=== PATIENT | male | born 1990 | race Caucasian/White ===

== ENCOUNTER 2017-06-20 13:44 | Observation (INO) | payer OTHER ==
[~2017-06-20] VITALS: Ht 167.6 cm; Wt 63.5 kg
[2017-06-20 14:52] LABS: BASOPHILS ABSOLUTE AUTO 0.03 K/mm3 (0.00-0.23); BASOPHILS PERCENT AUTO 0 % (0-2); EOSINOPHILS ABSOLUTE AUTO 0.19 K/mm3 (0.00-0.68); EOSINOPHILS PERCENT AUTO 2 % (0-6); Hematocrit 41.4 % (37.0-53.0); Hemoglobin 13.9 g/dL (13.5-17.5); IMMATURE GRAN ABSOLUTE AUTO 0.02 K/mm3 (0.00-0.10); IMMATURE GRAN PERCENT AUTO 0 % (0-1); LYMPHOCYTES ABSOLUTE AUTO 1.59 K/mm3 (0.84-5.20); LYMPHOCYTES PERCENT AUTO 19 % (21-46); MONOCYTES ABSOLUTE AUTO 0.86 K/mm3 (0.16-1.47); MONOCYTES PERCENT AUTO 10 % (4-13); Mean Corpuscular HGB 31.2 pg (26.0-34.0); Mean Corpuscular HGB Conc 33.6 g/dL (31.5-36.5); Mean Corpuscular Volume 93 fL (80-100); Mean Platelet Volume 10.2 fL (9.1-12.4); NEUTROPHILS PERCENT AUTO 68 % (41-73); Platelet Count 279 K/mm3 (150-400); RDW Coefficient Variation 12.8 % (11.7-14.2); RDW Standard Deviation 43.8 fL (35.1-46.3); Red Blood Cell Count 4.46 M/mm3 (4.30-5.90); White Blood Cell Count 8.49 K/mm3 (4.00-11.30)
[2017-06-20 15:15] LABS: Ethanol (Alcohol), Blood, Med <3 mg/dL; Salicylate 2.8 mg/dL (2.8-20.0)
[2017-06-20 15:21] LABS: Alanine Aminotransfer (ALT/SGP 36 U/L (12-78); Albumin, Blood 3.7 g/dL (3.4-5.0); Alk Phos 70 U/L (50-136); Anion Gap 8 mmol/L (6-16); Aspartate Aminotrans (AST/SGOT 63 U/L (12-37); Bilirubin, Total 0.3 mg/dL (0.1-1.0); Blood Urea Nitrogen 20 mg/dL (8-24); Bun/Creatinine Ratio 30.3 (12.0-20.0); CO2, Blood 30 mmol/L (21-32); Calcium, Blood 8.9 mg/dL (8.5-10.1); Chloride, Blood 104 mmol/L (98-108); Creatinine, Blood 0.66 mg/dL (0.60-1.20); Globulin, Blood 3.7 g/dL (2.2-4.0); Glomerular Filtration Rate >60 (60-); Glucose, Blood 81 mg/dL (70-99); Potassium, Blood 3.3 mmol/L (3.5-5.5); Sodium, Blood 142 mmol/L (136-145); Thyroid Stimulating Hormone 0.628 uIU/mL (0.360-4.800); Total Protein, Blood 7.4 g/dL (6.4-8.2)
[2017-06-20 15:31] LABS: Acetaminophen, Random <2.0 ug/mL (10.0-30.0)
[2017-06-20 15:52] LABS: Source, Urine Clean Catch
[2017-06-20 16:08] LABS: Appearance, Urine Clear (Clear); Bilirubin, Urine Neg (Neg); Blood, Urine 3+ (Neg); Color, Urine Yellow (P-Yellow); Glucose Qualitative, Urine Neg (Neg); Ketones, Urine 1+ (Neg); Leukocyte Esterase, Urine 1+ (Neg); Nitrite, Urine Neg (Neg); Protein, Urine 1+ (Neg); Urobilinogen, Urine 1+ (Normal)
[2017-06-20 16:21] LABS: Calcium Oxalate Crystals Mod /hpf
[2017-06-20 16:22] LABS: Bacteria Few /hpf; Mucus Heavy (0-Heavy); Squamous Epithelial Cells Not Seen /hpf (Few)
[2017-06-20 16:24] LABS: U Amphetamine Screen Not Detected; U Barbituate Screen Not Detected; U Benzodiazapine Screen Not Detected; U Buprenorphine Screen Not Detected; U Cannabinoids Screen DETECTED; U Cocaine Screen Not Detected; U Methadone Screen Not Detected; U Methamphetamine Screen Not Detected; U Opiates Screen Not Detected; U Oxycodone Screen Not Detected; U Phencyclidine Screen Not Detected; U Propoxyphene Screen Not Detected
== END 2017-06-23 11:35 | disposition home or self-care (01) ==
LOC: ER 13:44 → EOR 13:45
PROVIDERS: Emergency Medicine
DX: F20.9 Schizophrenia, unspecified (principal); F31.9 Bipolar disorder, unspecified
CPT/HCPCS: 80053; 81001; 84443; 85025; 87086; 99285; G0378; G0480

== ENCOUNTER 2017-08-23 18:32 | Observation (INO) | payer OTHER ==
[~2017-08-23] VITALS: Ht 167.6 cm; Wt 65.8 kg
[2017-08-23] MEDS ORDERED: OLAN10 PO (18:44)
[2017-08-23 19:22] LABS: BASOPHILS ABSOLUTE AUTO 0.06 K/mm3 (0.00-0.23); BASOPHILS PERCENT AUTO 1 % (0-2); EOSINOPHILS ABSOLUTE AUTO 0.12 K/mm3 (0.00-0.68); EOSINOPHILS PERCENT AUTO 1 % (0-6); Hematocrit 43.4 % (37.0-53.0); Hemoglobin 14.5 g/dL (13.5-17.5); IMMATURE GRAN ABSOLUTE AUTO 0.04 K/mm3 (0.00-0.10); IMMATURE GRAN PERCENT AUTO 0 % (0-1); LYMPHOCYTES ABSOLUTE AUTO 2.23 K/mm3 (0.84-5.20); LYMPHOCYTES PERCENT AUTO 18 % (21-46); MONOCYTES ABSOLUTE AUTO 0.92 K/mm3 (0.16-1.47); MONOCYTES PERCENT AUTO 8 % (4-13); Mean Corpuscular HGB 31.5 pg (26.0-34.0); Mean Corpuscular HGB Conc 33.4 g/dL (31.5-36.5); Mean Corpuscular Volume 94 fL (80-100); Mean Platelet Volume 9.6 fL (9.1-12.4); NEUTROPHILS ABSOLUTE AUTO 8.93 K/mm3 (1.96-9.15); NEUTROPHILS PERCENT AUTO 73 % (41-73); Platelet Count 273 K/mm3 (150-400); RDW Coefficient Variation 12.5 % (11.7-14.2); RDW Standard Deviation 43.4 fL (35.1-46.3)
[2017-08-23 19:45] LABS: Alanine Aminotransfer (ALT/SGP 47 U/L (12-78); Albumin, Blood 3.8 g/dL (3.4-5.0); Alk Phos 72 U/L (50-136); Anion Gap 8 mmol/L (6-16); Aspartate Aminotrans (AST/SGOT 38 U/L (12-37); Bilirubin, Total 0.4 mg/dL (0.1-1.0); Blood Urea Nitrogen 13 mg/dL (8-24); Bun/Creatinine Ratio 18.4 (12.0-20.0); CO2, Blood 25 mmol/L (21-32); Calcium, Blood 8.7 mg/dL (8.5-10.1); Chloride, Blood 108 mmol/L (98-108); Creatinine, Blood 0.71 mg/dL (0.60-1.20); Ethanol (Alcohol), Blood, Med <3 mg/dL; Globulin, Blood 3.8 g/dL (2.2-4.0); Glomerular Filtration Rate >60 (60-); Glucose, Blood 84 mg/dL (70-99); Potassium, Blood 3.6 mmol/L (3.5-5.5); Salicylate <1.7 mg/dL (2.8-20.0); Sodium, Blood 141 mmol/L (136-145); Total Protein, Blood 7.6 g/dL (6.4-8.2)
[2017-08-23 19:51] LABS: Acetaminophen, Random <2.0 ug/mL (10.0-30.0)
[2017-08-23 23:27] LABS: Source, Urine Voided
[2017-08-23 23:31] LABS: Bilirubin, Urine Neg (Neg); Blood, Urine Neg (Neg); Glucose Qualitative, Urine Neg (Neg); Ketones, Urine Neg (Neg); Leukocyte Esterase, Urine Neg (Neg); Nitrite, Urine Neg (Neg); Protein, Urine Neg (Neg); Urobilinogen, Urine NORM (Normal)
[2017-08-23 23:32] LABS: Appearance, Urine Clear (Clear); Color, Urine Yellow (P-Yellow)
[2017-08-23 23:42] LABS: U Amphetamine Screen Not Detected; U Barbituate Screen Not Detected; U Benzodiazapine Screen DETECTED; U Buprenorphine Screen Not Detected; U Cannabinoids Screen DETECTED; U Cocaine Screen Not Detected; U Methadone Screen Not Detected; U Methamphetamine Screen Not Detected; U Opiates Screen Not Detected; U Oxycodone Screen Not Detected; U Phencyclidine Screen Not Detected; U Propoxyphene Screen Not Detected
[2017-08-25] MEDS ORDERED: OLAN5 PO (19:28)
== END 2017-08-24 00:30 | disposition home or self-care (01) ==
LOC: ER 18:32 → EOR 18:33
PROVIDERS: Emergency Medicine
DX: T43.592A Poisoning by other antipsychotics and neuroleptics, intentional self-harm, initial encounter (principal); F20.9 Schizophrenia, unspecified; F17.200 Nicotine dependence, unspecified, uncomplicated; Z88.0 Allergy status to penicillin; Z88.1 Allergy status to other antibiotic agents; Z91.5 Personal history of self-harm
CPT/HCPCS: 36415; 80053; 81003; 84443; 85025; 93005; 93010; 99285; G0378; G0480; Q3014

== ENCOUNTER 2017-08-25 12:00 | Observation (INO) | payer OTHER ==
[~2017-08-25] VITALS: Ht 167.6 cm; Wt 63.5 kg
[~2017-08-25 12:00] MED LIST: OLAN10 PO
[2017-08-25 13:08] LABS: BASOPHILS ABSOLUTE AUTO 0.05 K/mm3 (0.00-0.23); BASOPHILS PERCENT AUTO 1 % (0-2); EOSINOPHILS ABSOLUTE AUTO 0.21 K/mm3 (0.00-0.68); EOSINOPHILS PERCENT AUTO 2 % (0-6); Hematocrit 43.8 % (37.0-53.0); Hemoglobin 14.5 g/dL (13.5-17.5); IMMATURE GRAN ABSOLUTE AUTO 0.03 K/mm3 (0.00-0.10); IMMATURE GRAN PERCENT AUTO 0 % (0-1); LYMPHOCYTES ABSOLUTE AUTO 1.99 K/mm3 (0.84-5.20); LYMPHOCYTES PERCENT AUTO 21 % (21-46); MONOCYTES ABSOLUTE AUTO 0.62 K/mm3 (0.16-1.47); MONOCYTES PERCENT AUTO 7 % (4-13); Mean Corpuscular HGB 31.6 pg (26.0-34.0); Mean Corpuscular HGB Conc 33.1 g/dL (31.5-36.5); Mean Corpuscular Volume 95 fL (80-100); Mean Platelet Volume 9.3 fL (9.1-12.4); NEUTROPHILS ABSOLUTE AUTO 6.45 K/mm3 (1.96-9.15); NEUTROPHILS PERCENT AUTO 69 % (41-73); Platelet Count 283 K/mm3 (150-400); RDW Coefficient Variation 12.8 % (11.7-14.2); RDW Standard Deviation 44.3 fL (35.1-46.3); Red Blood Cell Count 4.59 M/mm3 (4.30-5.90); White Blood Cell Count 9.35 K/mm3 (4.00-11.30)
[2017-08-25 13:32] LABS: Alanine Aminotransfer (ALT/SGP 42 U/L (12-78); Albumin, Blood 3.6 g/dL (3.4-5.0); Albumin/Globulin Ratio 0.9 (0.8-1.8); Alk Phos 69 U/L (50-136); Anion Gap 6 mmol/L (6-16); Aspartate Aminotrans (AST/SGOT 33 U/L (12-37); Bilirubin, Total 0.3 mg/dL (0.1-1.0); Blood Urea Nitrogen 13 mg/dL (8-24); Bun/Creatinine Ratio 20.1 (12.0-20.0); CO2, Blood 30 mmol/L (21-32); Chloride, Blood 106 mmol/L (98-108); Creatinine, Blood 0.65 mg/dL (0.60-1.20); Ethanol (Alcohol), Blood, Med <3 mg/dL; Globulin, Blood 3.8 g/dL (2.2-4.0); Glomerular Filtration Rate >60 (60-); Glucose, Blood 106 mg/dL (70-99); Potassium, Blood 4.1 mmol/L (3.5-5.5); Salicylate <1.7 mg/dL (2.8-20.0); Sodium, Blood 142 mmol/L (136-145); Total Protein, Blood 7.4 g/dL (6.4-8.2)
[2017-08-25 13:34] LABS: Source, Urine Clean Catch
[2017-08-25 13:50] LABS: Acetaminophen, Random <2.0 ug/mL (10.0-30.0)
[2017-08-25 13:50] LABS: Bilirubin, Urine Neg (Neg); Blood, Urine Neg (Neg); Glucose Qualitative, Urine Neg (Neg); Ketones, Urine Neg (Neg); Leukocyte Esterase, Urine Neg (Neg); Nitrite, Urine Neg (Neg); Protein, Urine Neg (Neg); Specific Gravity, Urine 1.015 (1.003-1.022); Urobilinogen, Urine NORM (Normal)
[2017-08-25 14:07] LABS: Appearance, Urine Hazy (Clear); Color, Urine Yellow (P-Yellow)
[2017-08-25 14:08] LABS: Amorphous Mod (0-Heavy); Bacteria Rare /hpf; Red Blood Cells, Urine 0-2 /hpf (0-2); Squamous Epithelial Cells Rare /hpf (Few); U Amphetamine Screen Not Detected; U Barbituate Screen Not Detected; U Benzodiazapine Screen Not Detected; U Buprenorphine Screen Not Detected; U Cannabinoids Screen DETECTED; U Cocaine Screen Not Detected; U Methadone Screen Not Detected; U Methamphetamine Screen Not Detected; U Opiates Screen Not Detected; U Oxycodone Screen Not Detected; U Phencyclidine Screen Not Detected; U Propoxyphene Screen Not Detected; White Blood Cells, Urine 0-2 /hpf (0-5)
[2017-08-25] MEDS ORDERED: OLAN5 PO (19:28)
[2017-08-28] MEDS ORDERED: OLAN10 PO (09:20)
== END 2017-08-28 10:01 | disposition home or self-care (01) ==
LOC: ER 12:00 → EOR 12:01
PROVIDERS: Physician Assistant
DX: F23 Brief psychotic disorder (principal); F32.9 Major depressive disorder, single episode, unspecified; F17.210 Nicotine dependence, cigarettes, uncomplicated; Z59.0 Homelessness; Z79.899 Other long term (current) drug therapy
CPT/HCPCS: 80053; 81001; 84443; 85025; 99285; G0378; G0480; Q3014

== ENCOUNTER 2017-11-05 14:21 | Emergency (ER) | payer OTHER ==
[~2017-11-05] VITALS: Ht 167.6 cm; Wt 61.2 kg
[~2017-11-05 14:21] MED LIST changes: +OLAN5 PO
== END 2017-11-05 15:02 | disposition home or self-care (01) ==
LOC: ER 14:21
DX: L98.9 Disorder of the skin and subcutaneous tissue, unspecified (principal); Z88.0 Allergy status to penicillin; Z88.8 Allergy status to other drugs, medicaments and biological substances; F32.9 Major depressive disorder, single episode, unspecified; F31.9 Bipolar disorder, unspecified; F20.9 Schizophrenia, unspecified; F17.200 Nicotine dependence, unspecified, uncomplicated
CPT/HCPCS: 99281

== ENCOUNTER 2018-01-25 20:14 | Emergency (ER) | payer MEDICAID ==
[~2018-01-25] VITALS: Ht 167.6 cm; Wt 61.2 kg
[2018-01-25] MEDS ORDERED: CEPH500 PO (21:56)
== END 2018-01-25 22:19 | disposition home or self-care (01) ==
LOC: ER 20:14
DX: S81.012A Laceration without foreign body, left knee, initial encounter (principal); V00.131A Fall from skateboard, initial encounter; Z88.0 Allergy status to penicillin; Z88.8 Allergy status to other drugs, medicaments and biological substances; F17.200 Nicotine dependence, unspecified, uncomplicated
CPT/HCPCS: 12001; 73562-LT; 90471; 90714; 96372; 99283-25; J0690

== ENCOUNTER 2018-01-26 04:52 | Emergency (ER) | payer MEDICAID ==
[~2018-01-26] VITALS: Ht 170.2 cm; Wt 61.2 kg
[~2018-01-26 04:52] MED LIST changes: +CEPH500 PO
== END 2018-01-26 05:34 | disposition home or self-care (01) ==
LOC: ER 04:52
DX: S89.92XA Unspecified injury of left lower leg, initial encounter (principal); X58.XXXA Exposure to other specified factors, initial encounter; Z88.0 Allergy status to penicillin; Z88.8 Allergy status to other drugs, medicaments and biological substances; F32.9 Major depressive disorder, single episode, unspecified; F17.200 Nicotine dependence, unspecified, uncomplicated
CPT/HCPCS: 96372; 99283; J1885

== ENCOUNTER 2018-02-14 09:12 | Emergency (ER) | payer OTHER ==
[~2018-02-14] VITALS: Ht 172.7 cm; Wt 68.0 kg
[2018-02-14] MEDS ORDERED: Mupirocin22 GM TOP (09:45)
[2018-02-14] MEDS ORDERED: CEPH500 PO (09:45)
== END 2018-02-14 09:53 | disposition home or self-care (01) ==
LOC: ER 09:12
DX: S80.212A Abrasion, left knee, initial encounter (principal); F17.200 Nicotine dependence, unspecified, uncomplicated; Z88.0 Allergy status to penicillin; Z88.8 Allergy status to other drugs, medicaments and biological substances; X58.XXXA Exposure to other specified factors, initial encounter
CPT/HCPCS: 87070; 87075; 87077; 87147; 87186; 87205; 99283

== ENCOUNTER 2018-06-07 22:29 | Emergency (ER) | payer OTHER ==
[~2018-06-07] VITALS: Ht 167.6 cm; Wt 65.8 kg
[~2018-06-07 22:29] MED LIST changes: +Mupirocin22 GM TOP
[2018-06-07 23:20] LABS: BASOPHILS ABSOLUTE AUTO 0.05 K/mm3 (0.00-0.23); BASOPHILS PERCENT AUTO 1 % (0-2); EOSINOPHILS ABSOLUTE AUTO 0.44 K/mm3 (0.00-0.68); EOSINOPHILS PERCENT AUTO 5 % (0-6); Hematocrit 45.5 % (37.0-53.0); Hemoglobin 14.6 g/dL (13.5-17.5); IMMATURE GRAN ABSOLUTE AUTO 0.02 K/mm3 (0.00-0.10); IMMATURE GRAN PERCENT AUTO 0 % (0-1); LYMPHOCYTES ABSOLUTE AUTO 1.97 K/mm3 (0.84-5.20); LYMPHOCYTES PERCENT AUTO 20 % (21-46); MONOCYTES ABSOLUTE AUTO 1.05 K/mm3 (0.16-1.47); MONOCYTES PERCENT AUTO 11 % (4-13); Mean Corpuscular HGB 31.7 pg (26.0-34.0); Mean Corpuscular HGB Conc 32.1 g/dL (31.5-36.5); Mean Corpuscular Volume 99 fL (80-100); Mean Platelet Volume 9.2 fL (9.1-12.4); NEUTROPHILS ABSOLUTE AUTO 6.21 K/mm3 (1.96-9.15); NEUTROPHILS PERCENT AUTO 64 % (41-73); Platelet Count 274 K/mm3 (150-400); RDW Coefficient Variation 12.3 % (11.7-14.2); RDW Standard Deviation 44.9 fL (35.1-46.3); White Blood Cell Count 9.74 K/mm3 (4.00-11.30)
[2018-06-07 23:38] LABS: Alanine Aminotransfer (ALT/SGP 29 U/L (12-78); Albumin, Blood 3.5 g/dL (3.4-5.0); Albumin/Globulin Ratio 0.9 (0.8-1.8); Alk Phos 81 U/L (50-136); Anion Gap 6 mmol/L (6-16); Aspartate Aminotrans (AST/SGOT 16 U/L (12-37); Bilirubin, Total 0.1 mg/dL (0.1-1.0); Blood Urea Nitrogen 14 mg/dL (8-24); Bun/Creatinine Ratio 17.7 (12.0-20.0); CO2, Blood 30 mmol/L (21-32); Calcium, Blood 8.5 mg/dL (8.5-10.1); Chloride, Blood 103 mmol/L (98-108); Creatinine, Blood 0.79 mg/dL (0.60-1.20); Globulin, Blood 4.1 g/dL (2.2-4.0); Glomerular Filtration Rate >60 (60-); Glucose, Blood 89 mg/dL (70-99); Sodium, Blood 139 mmol/L (136-145); Total Protein, Blood 7.6 g/dL (6.4-8.2)
[2018-06-08 01:37] LABS: Source, Urine Clean Catch
[2018-06-08 01:47] LABS: Bilirubin, Urine Neg (Neg); Blood, Urine Neg (Neg); Glucose Qualitative, Urine Neg (Neg); Ketones, Urine 1+ (Neg); Leukocyte Esterase, Urine Neg (Neg); Nitrite, Urine Neg (Neg); Protein, Urine 1+ (Neg); Urobilinogen, Urine 1+ (Normal); pH, Urine 6.5 (5.0-8.0)
[2018-06-08 01:51] LABS: Appearance, Urine Clear (Clear); Color, Urine Yellow (P-Yellow)
== END 2018-06-08 02:39 | disposition home or self-care (01) ==
LOC: ER 22:29
PROVIDERS: Emergency Medicine
DX: R10.9 Unspecified abdominal pain (principal); Z88.0 Allergy status to penicillin; Z88.8 Allergy status to other drugs, medicaments and biological substances; F17.200 Nicotine dependence, unspecified, uncomplicated
CPT/HCPCS: 36415; 74176; 80053; 85025; 96374; 99285-25; J1885

== ENCOUNTER 2019-08-23 20:06 | Inpatient (IN) | payer OTHER ==
[~2019-08-23] VITALS: Ht 167.6 cm; Wt 61.2 kg
[2019-08-23 20:48] LABS: BASOPHILS ABSOLUTE AUTO 0.05 K/mm3 (0.00-0.23); BASOPHILS PERCENT AUTO 0 % (0-2); EOSINOPHILS ABSOLUTE AUTO 0.47 K/mm3 (0.00-0.68); EOSINOPHILS PERCENT AUTO 3 % (0-6); Hematocrit 44.1 % (37.0-53.0); Hemoglobin 14.2 g/dL (13.5-17.5); IMMATURE GRAN ABSOLUTE AUTO 0.05 K/mm3 (0.00-0.10); IMMATURE GRAN PERCENT AUTO 0 % (0-1); LYMPHOCYTES ABSOLUTE AUTO 2.48 K/mm3 (0.84-5.20); LYMPHOCYTES PERCENT AUTO 17 % (21-46); MONOCYTES ABSOLUTE AUTO 1.12 K/mm3 (0.16-1.47); MONOCYTES PERCENT AUTO 8 % (4-13); Mean Corpuscular HGB 30.7 pg (26.0-34.0); Mean Corpuscular HGB Conc 32.2 g/dL (31.5-36.5); Mean Corpuscular Volume 96 fL (80-100); Mean Platelet Volume 9.7 fL (9.1-12.4); NEUTROPHILS ABSOLUTE AUTO 10.79 K/mm3 (1.96-9.15); NEUTROPHILS PERCENT AUTO 72 % (41-73); Platelet Count 292 K/mm3 (150-400); RDW Coefficient Variation 12.5 % (11.7-14.2); RDW Standard Deviation 44.1 fL (35.1-46.3); Red Blood Cell Count 4.62 M/mm3 (4.30-5.90); White Blood Cell Count 14.96 K/mm3 (4.00-11.30)
[2019-08-23 21:10] LABS: Alanine Aminotransfer (ALT/SGP 27 U/L (12-78); Albumin, Blood 3.3 g/dL (3.4-5.0); Albumin/Globulin Ratio 0.8 (0.8-1.8); Alk Phos 102 U/L (50-136); Anion Gap 7 mmol/L (6-16); Aspartate Aminotrans (AST/SGOT 20 U/L (12-37); Bilirubin, Total 0.2 mg/dL (0.1-1.0); Blood Urea Nitrogen 20 mg/dL (8-24); Bun/Creatinine Ratio 29.7 (12.0-20.0); CO2, Blood 27 mmol/L (21-32); Calcium, Blood 8.5 mg/dL (8.5-10.1); Chloride, Blood 103 mmol/L (98-108); Creatinine, Blood 0.67 mg/dL (0.60-1.20); Globulin, Blood 4.1 g/dL (2.2-4.0); Glomerular Filtration Rate >60 (60-); Glucose, Blood 114 mg/dL (70-99); Potassium, Blood 4.1 mmol/L (3.5-5.5); Sodium, Blood 137 mmol/L (136-145); Total Protein, Blood 7.4 g/dL (6.4-8.2)
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
--- NOTE | 2019-08-24 04:08 | NUR ---
PT ACTIVELY HALLUCINATING, APPEARS AGITATED AND HOLLERING OUT. C/O PAIN TO LEFT MIDDLE FINGER. PT NOT ABLE TO SIT STILL. REPORTS HEARING VOICES. SPOKE WITH DR. GOLD WHO IS RECOMMENDING HOSPITALIST CONSULT. CALL PLACED TO HOSPITALIST. NEW ORDERS FOR HALDOL AND ATIVAN + URINE TOX.
--- NOTE | 2019-08-24 04:41 | NUR ---
DR. ALEMAN HERE TO SEE PATIENT
[2019-08-24 04:53] LABS: U Amphetamine Screen Not Detected; U Barbituate Screen Not Detected; U Benzodiazapine Screen Not Detected; U Buprenorphine Screen Not Detected; U Cannabinoids Screen DETECTED; U Cocaine Screen Not Detected; U Methadone Screen Not Detected; U Methamphetamine Screen Not Detected; U Opiates Screen Not Detected; U Oxycodone Screen Not Detected; U Phencyclidine Screen Not Detected; U Propoxyphene Screen Not Detected
--- NOTE | 2019-08-24 09:02 | NUR ---
DR PEREZ REPORTS BEEN TO SEE PT.
--- NOTE | 2019-08-24 11:58 | NUR ---
DR GOLD HERE TO SEE PT.
--- NOTE | 2019-08-24 14:41 | NUR ---
PT OUT OF ROOM FOR PROCEDURE ON [facility]. PT HAS GOWN. PT REPORTS VOIDING IN TOILET.
--- NOTE | 2019-08-24 15:30 | NUR ---
Patient up to Ambulate independently. Gait steady. Joselito Paws warming gown applied. History, Chart, Medications and Allergies reviewed before start of procedure.Lungs clear T/O to Auscultation. Patient confirms NPO status and agrees with scheduled surgery. ALL BELONINGS LEFT IN ROOM.
--- NOTE | 2019-08-24 16:26 | NUR ---
SHIFT SUMMARY PT BEEN NPO TODAY. DR GOLD BEEN TO SEE PT EARLIER TODAY. PT CONT TO BE OUT OF ROOM AT THIS TIME FOR PROCEDURE. PT BEEN MED PRN FOR PAIN. PT BEEN VOIDING.
--- NOTE | 2019-08-24 17:28 | NUR ---
PT RECENTLY TO ROOM AFTER HAVING PROCEDURE. PT HAS NEW DRESSING WITH COBAN TO L MIDDLE FINGER. PT ASSISTED WITH ADL'S PRN. IV ABX INFUSING AFTER PT TO ROOM. BP ELEVATED WHEN USING FOREARM CUFF R/T IV IN RIGHT UPPER ARM AND L FINGER I+D.
--- NOTE | 2019-08-24 17:31 | NUR ---
PT PLEASANT AND COOP.
--- NOTE | 2019-08-24 17:54 | NUR ---
PT INSTRUCTED ON I/S. PT EATING DINNER WITHOUT DIFFICULTY.
--- NOTE | 2019-08-25 04:06 | NUR ---
SHIFT SUMMARY PT A/O X4, IND. IN ROOM. PT IS TOLERATING PO INTAKE AND VOIDING. PULSES IN HAND ARE STRONG. PAIN MANAGED WITH PO PAIN MEDS PER ORDERS. PT HAS BEEN RESTING QUIETLY WITH EYES CLOSED. ASSISTED WITH ADL'S PRN. NO ACUTE CHANGES OVER NIGHT.
--- NOTE | 2019-08-25 04:24 | NUR ---
BLADDER SCAN BLADDER SCAN ORDER NOTED AND DISCUSSED WITH NURSING UNIT CLERK. PT IS A/OX4, IND, AND VOIDING. WILL DISCUSS THIS ORDER WITH DAY RN TO VERIFY WITH DAY SHIFT HOSPITALIST.
--- NOTE | 2019-08-25 09:30 | NUR ---
PT WORKED WITH OT. DRESSING WAS REMOVED. PT SOAKED FINGER ORDERED AND NEW DRESSING APPLIED. PT MED FOR PAIN.
--- NOTE | 2019-08-25 13:15 | NUR ---
HUNTER HERE RECENTLY AND ASSESSED FINGER AND PLACED NEW DRESSING.
--- NOTE | 2019-08-25 14:26 | NUR ---
SHIFT SUMMARY PT EATING AND DRINKING, VOIDING. REPORTS HAVING BM YESTERDAY MORNING. PT MED FOR PAIN THIS AM. PT SOAKED FINGER THIS AM AFTER WORKING WITH OTChelsey HARRISON IN TODAY AND ASSESSED FINGER AND PLACED NEW DRESSING. PT UP IND AND WALKING IN HALLWAY. PT BEEN ELEVATING ARMS ON MULT PILLOWS. PT MED FOR ANXIETY/AGITATION X 1 TODAY. SEE HX. "I JUST DON'T WANT TO TAKE MY TEMPER OUT ON ANYONE". PT BEEN PLEASANT AND COOP MOST OF DAY AND SINCE BEING MEDICATED.
--- NOTE | 2019-08-25 14:56 | NUR ---
REPORT GIVEN TO Jevon SHE IS TAKING OVER CARE AT THIS TIME. PT RESTING QUIETLY RESP E/U.
--- NOTE | 2019-08-25 18:29 | NUR ---
NO CHANGES SINCE ASSUMING CARE OF PATIENT LATE THIS AFTERNOON. TAKING PO. NO C/O.
[2019-08-25 21:26] LABS: Vancomycin, Trough 10.3 ug/mL (5.0-10.0)
[2019-08-26 03:44] LABS: BASOPHILS ABSOLUTE AUTO 0.05 K/mm3 (0.00-0.23); BASOPHILS PERCENT AUTO 0 % (0-2); EOSINOPHILS ABSOLUTE AUTO 0.32 K/mm3 (0.00-0.68); EOSINOPHILS PERCENT AUTO 3 % (0-6); Hematocrit 42.8 % (37.0-53.0); Hemoglobin 13.7 g/dL (13.5-17.5); IMMATURE GRAN ABSOLUTE AUTO 0.04 K/mm3 (0.00-0.10); IMMATURE GRAN PERCENT AUTO 0 % (0-1); LYMPHOCYTES ABSOLUTE AUTO 3.53 K/mm3 (0.84-5.20); LYMPHOCYTES PERCENT AUTO 31 % (21-46); MONOCYTES ABSOLUTE AUTO 0.87 K/mm3 (0.16-1.47); MONOCYTES PERCENT AUTO 8 % (4-13); Mean Corpuscular HGB 30.9 pg (26.0-34.0); Mean Corpuscular Volume 97 fL (80-100); Mean Platelet Volume 9.8 fL (9.1-12.4); NEUTROPHILS ABSOLUTE AUTO 6.64 K/mm3 (1.96-9.15); NEUTROPHILS PERCENT AUTO 58 % (41-73); Platelet Count 307 K/mm3 (150-400); RDW Coefficient Variation 12.6 % (11.7-14.2); RDW Standard Deviation 45.2 fL (35.1-46.3); Red Blood Cell Count 4.43 M/mm3 (4.30-5.90); White Blood Cell Count 11.45 K/mm3 (4.00-11.30)
[2019-08-26 04:03] LABS: Alanine Aminotransfer (ALT/SGP 51 U/L (12-78); Albumin, Blood 2.9 g/dL (3.4-5.0); Albumin/Globulin Ratio 0.7 (0.8-1.8); Alk Phos 83 U/L (50-136); Anion Gap 2 mmol/L (6-16); Aspartate Aminotrans (AST/SGOT 39 U/L (12-37); Bilirubin, Total 0.1 mg/dL (0.1-1.0); Blood Urea Nitrogen 19 mg/dL (8-24); Bun/Creatinine Ratio 26.8 (12.0-20.0); CO2, Blood 31 mmol/L (21-32); Calcium, Blood 8.7 mg/dL (8.5-10.1); Chloride, Blood 108 mmol/L (98-108); Creatinine, Blood 0.71 mg/dL (0.60-1.20); Globulin, Blood 4.1 g/dL (2.2-4.0); Glomerular Filtration Rate >60 (60-); Glucose, Blood 85 mg/dL (70-99); Potassium, Blood 4.4 mmol/L (3.5-5.5); Sodium, Blood 141 mmol/L (136-145)
--- NOTE | 2019-08-26 04:40 | NUR ---
SHIFT SUMMARY PT IS A/O X4 AND IND. IN ROOM. TOLERATING PO INTAKE & VOIDING. PAIN MANAGED WITH PO PAIN MEDS PER ORDERS. PULSES TO L HAND STRONG. ASSISTED WITH ADL'S PRN.
--- NOTE | 2019-08-26 13:02 | NUR ---
DR GALO ROJAS HERE TO SEE PATIENT. FINGER DRESSING REMOVE BY DR ROJAS. PT SOAKING FINGER IN STERILE WATER/ CHLORHEXADING SOLUTION. PT REPORTS PAIN IS CONTROLLED. PT PLEASANT AND COOPERATIVE
--- NOTE | 2019-08-26 17:46 | NUR ---
SUMMARY PAIN CONTROLLED WITH PO MEDS. PT PLEASANT AND COOPERATIVE, UP TO BR TO VOID. PT AGREEABLE TO PLAN TO SOAK FINGER EVERY 4 HOURS- EATING DINNER AT TIME OF SCHEDULED 1700 SOAK AND STATES HE WILL SOAK WHEN HE HAS FINISHED DINNER
--- NOTE | 2019-08-27 04:08 | NUR ---
SHIFT SUMMARY POD 3 I&D L MIDDLE FINGER. AA0X4, VSS. PT SOAKED FINGER ONE TIME SO FAR TODAY. HAS BEEN SLEEPING OTHERWISE. REPORTS NUMBNESS FROM SECOND KNUCKLE TO TIP OF FINGER. PT ACTIVE IN WOUND CARE AND TREATMENT, EXPRESSED MOTIVATION TO LEARN AND MANAGE HIS OWN CARE. DENIED PAIN MEDICATION FOR THE DAY BUT REQUESTED ATIVAN TO HELP WITH ANXIETY. IND IN ROOM, VOIDING AND TOLERATING PO WELL. WILL CONTINUE WITH WOUND SOAKING PT AWAKENS.
[2019-08-27 04:23] LABS: Hematocrit 45.7 % (37.0-53.0); Hemoglobin 14.5 g/dL (13.5-17.5); Mean Corpuscular HGB 30.5 pg (26.0-34.0); Mean Corpuscular HGB Conc 31.7 g/dL (31.5-36.5); Mean Corpuscular Volume 96 fL (80-100); Mean Platelet Volume 9.5 fL (9.1-12.4); Platelet Count 317 K/mm3 (150-400); RDW Coefficient Variation 12.5 % (11.7-14.2); RDW Standard Deviation 44.7 fL (35.1-46.3); Red Blood Cell Count 4.76 M/mm3 (4.30-5.90); White Blood Cell Count 8.25 K/mm3 (4.00-11.30)
--- NOTE | 2019-08-27 16:18 | NUR ---
PT SOAKING LMF, DENIES ANY NEED FOR PAIN MEDS AT THIS TIME.
--- NOTE | 2019-08-27 17:02 | NUR ---
NEW GAUZE DSG APPLIED TO LMF AFTER SOAKING.
--- NOTE | 2019-08-27 18:00 | NUR ---
SUMMARY PT COOPERATIVE WITH SOAKING L MIDDLE FINGER, GAUZE DSG APPLIED AFTER EACH SOAK DENIED ANY NEED FOR PAIN MEDS, DR. ROJAS EVALUATED PT'S FINGER TODAY, PLAN FOR POSSIBLE WOUND DEBRIDING TOMORROW, NPO AFTER MN.
--- NOTE | 2019-08-28 08:03 | NUR ---
SUMMARY PT ALERT. COOPERATIVE. NO REQUESTS FOR PAIN MED.NPO PENDING POSSIBLE PROCEDURE THIS AM. PT VERB FINGER SENSATION IS FULLY INTACT. DSNG D/I PENDING CHANGE TODAY WITH DR VISIT FOR EXAM.IV PATENT 18g
--- NOTE | 2019-08-28 15:42 | NUR ---
SHIFT SUMMARY PT IS A/O X 4 BUT IS PARANOID. HE HAS NO C/O OF PAIN AND STATES "I DONT NEED THIS FINGER ANYWAY". DR ROJAS SAW PT AT THE BEDSIDE TODAY AND CHANGED HIS DRESSING DURING THE ASSESSMENT. THE PLAN IS FOR HER TO COME BACK AND SEE THE PT AFTER HER OTHER PROCEDURES AND DECIDE ON A PLAN. IV ABO HAVE INFUSED ORDERED WITH NO ISSUE. PT REMAINS NPO FOR POSSIBLE PROCEDURE. PT IS ABLE TO MAKE HIS NEEDS KNOWN AND IS COMPLIANT WITH CARE. HIS CALL LIGHT IS IN REACH.
--- NOTE | 2019-08-29 04:25 | NUR ---
SHIFT SUMMARY AA0X4, VSS. PT HAS BEEN RESTING IN BED THROUGHOUT THE NIGHT. MEDICATED FOR PAIN X1 AND FOR ANXIETY X1. PT STATES ANXIETY MEDICATION HELPS HIM TO SLEEP. PT REPORTS MORE FEELING IN FINGER. PT TOLERATING PO WELL. ABX INFUSING THROUGH NIGHT. PLAN IS TO REASSESS FINGER TODAY.
--- NOTE | 2019-08-29 15:43 | NUR ---
DR ROJAS TO SEE PT.
--- NOTE | 2019-08-29 16:09 | NUR ---
NEW DRESSING PLACED AFTER PT SOAKED FINGER PER DR ROJAS.
--- NOTE | 2019-08-29 17:48 | NUR ---
SHIFT SUMMARY PT EATING AND DRINKING, VOIDING. REPORTS HAVING BM THIS AM. PT SEEN BY DR ROJAS TODAY. PT DID SOAK WHEN DR HERE. NEW DRESSING WAS PLACED. DR REPORTS TO CONT SOAKING ORDER Q 4 WHILE AWAKE. PT BEEN ASSISTED WITH ADL'S PRN. PT UP IND IN ROOM.
--- NOTE | 2019-08-30 04:12 | NUR ---
SHIFT SUMMARY AOX4. FOLLOWS DIRECTIONS & ABLE TO STATE NEEDS. RAMBLES OFF TOPIC ON RANDOM TANGENTS DURING ASSESSMENT. REPORTED UNABLE TO "STOP THINKING ABOUT ALL THE PEOPLE AND THINGS GOING ON IN MY HEAD," & STATED HE FELT ANXIOUS MEDICATED 1X W/ATIVAN PER ORDERS & PT ABLE TO RELAX & REST WELL SINCE. LMF WAS SOAKED & NEW DRESSING WAS APPLIED, PT HAS BEEN ELEVATING FINGER ON PILLOW. STATES PAIN LEVEL IS TOLERABLE & IT'S "MORE IN MY HEAD". PT CAN FEEL TOUCH & HAS SLIGHT MOVEMENT W/LMF. IND IN ROOM. TOLERATING REG DIET. DENIES N/V OR DYSPNEA. CALL LIGHT IN REACH.
--- NOTE | 2019-08-30 15:38 | NUR ---
SHIFT SUMMARY NO ACUTE CHANGES THIS SHIFT. CONT WOUND CLEANSING PER ORDERS. PT REPORTS MINIMAL PAIN TO LEFT MIDDLE FINGER AT REST AND ONLY REPORTS PAIN WITH PRESSURE. DENIES NEED FOR PAIN MEDICATIONS. INDEP IN ROOM. DR. MO NOTIFIED OF NO IV ACCESS AND THAT PT MISSED NOON DOSE OF IV ABX. ICU NURSE TO COME ATTEMPT ACCESS SHORTLY. PLAN IS FOR PT BE NPO AT MIDNIGHT AND HAVE ORTHO AMPUTATE FINGER TOMORROW MORNING. CALL LIGHT WITHIN REACH.
--- NOTE | 2019-08-31 03:32 | NUR ---
SHIFT SUMMARY NO ACUTE CHANGES THIS SHIFT. PT A/OX4 WITH VSS, IND IN ROOM. ABX/IVF ADMINISTERED PER ORDERS. MEDICATED ONCE FOR ANXIETY. NPO SINCE MIDNIGHT. PT CALM T/O NIGHT AND APPEARS TO HAVE SLEPT WELL. PLAN FOR AMPUTATION TO LEFT MIDDLE FINGER TODAY. WILL CONT TO MONITOR AND GIVE REPORT TO ONCOMING RN.
--- NOTE | 2019-08-31 08:56 | NUR ---
BROUGHT TO [facility] ADMISSION TO UNIT STARTED. History, Chart, Medications and Allergies reviewed before start of procedure. Lungs clear T/O to Auscultation. Patient confirms NPO status and agrees with scheduled surgery.
--- NOTE | 2019-08-31 09:25 | NUR ---
pt to OR
--- NOTE | 2019-08-31 11:30 | NUR ---
PT BACK TO ROOM FROM PACU ALERT AND ORIENTED. DENIES PAIN. DRESSING TO L MIDDLE FINGER CDI. PROVIDED WATER AND SNACK FOR PT. PT TRANSFERRED INDEPENDENTLY TO BED FROM [facility]. CALL LIGHT AND PHONE IN REACH.
--- NOTE | 2019-08-31 19:13 | NUR ---
SUMMARY S/P L MIDDLE FINGER AMPUTATION THIS SHIFT. PT HAS DENIED PAIN TO HAND. PROVIDED ICE PACK TO PT FOR 2/10 L NECK/DOOLEY PAIN. INDEPENDENT IN ROOM. CALL LIGHT IN REACH.
--- NOTE | 2019-09-01 05:17 | NUR ---
SUMMARY PT ALERT AND ORIENTED. HX SCHIZOPHRENIA, BUT APPEARS CLEAR WITH CONCRETE THOUGHTS TONIGHT. MED PER PT REQUEST FOR ANXIETY.DENIES NEED FOR PAIN MEDS. PT NEEDING REMINDING TO USE URINAL FOR MEASURING OF VOID.DENIED N/T TO FINGERS/EXT TONIGHT.
[2019-09-01] MEDS ORDERED: HYDR1TAB94 PO (15:19)
== END 2019-09-01 16:13 | disposition home or self-care (01) | DRG 580 ==
LOC: ER 20:06 → SURS 22:59
PROVIDERS: Internal Medicine; Physician Assistant; ADMIT Orthopaedic Surgery
PROC: 0HTQXZZ Resection of Finger Nail, External Approach (ICD-10-PCS; 2019-08-24)
PROC: 0HDGXZZ Extraction of Left Hand Skin, External Approach (ICD-10-PCS; principal; 2019-08-24 15:45)
PROC: 0HDGXZZ Extraction of Left Hand Skin, External Approach (ICD-10-PCS; 2019-08-28)
PROC: 0X6R0Z2 Detachment at Left Middle Finger, Mid, Open Approach (ICD-10-PCS; 2019-08-31)
DX: S61.203A Unspecified open wound of left middle finger without damage to nail, initial encounter (principal); I96 Gangrene, not elsewhere classified; F17.210 Nicotine dependence, cigarettes, uncomplicated; E86.0 Dehydration; Z59.0 Homelessness; F32.9 Major depressive disorder, single episode, unspecified; L08.9 Local infection of the skin and subcutaneous tissue, unspecified
CPT/HCPCS: 36415; 73130; 80053; 80202; 83605; 85025; 85027; 85651; 86140; 87040; 87070; 87071; 87075; 87077; 87147; 87186; 87205; 88305; 88311; 96365; 96367; 97110; 97165; 99285-25; A9270; A9270-GY; J0690; J0692; J1100; J1170; J1885; J2060; J2250; J2405; J2704; J3010; J3370; J7030; J7040; J7120

== ENCOUNTER 2019-10-25 23:34 | Inpatient (IN) | payer OTHER ==
[~2019-10-25] VITALS: Ht 172.7 cm; Wt 65.8 kg
[~2019-10-25 23:34] MED LIST changes: +HYDR1TAB94 PO
[2019-10-26 00:27] LABS: Source, Urine Clean Catch
[2019-10-26 00:31] LABS: BASOPHILS ABSOLUTE AUTO 0.04 K/mm3 (0.00-0.23); BASOPHILS PERCENT AUTO 0 % (0-2); EOSINOPHILS ABSOLUTE AUTO 0.18 K/mm3 (0.00-0.68); EOSINOPHILS PERCENT AUTO 2 % (0-6); Hematocrit 42.9 % (37.0-53.0); Hemoglobin 13.8 g/dL (13.5-17.5); IMMATURE GRAN ABSOLUTE AUTO 0.04 K/mm3 (0.00-0.10); IMMATURE GRAN PERCENT AUTO 0 % (0-1); LYMPHOCYTES ABSOLUTE AUTO 2.26 K/mm3 (0.84-5.20); LYMPHOCYTES PERCENT AUTO 22 % (21-46); MONOCYTES ABSOLUTE AUTO 0.68 K/mm3 (0.16-1.47); MONOCYTES PERCENT AUTO 7 % (4-13); Mean Corpuscular HGB 30.5 pg (26.0-34.0); Mean Corpuscular HGB Conc 32.2 g/dL (31.5-36.5); Mean Corpuscular Volume 95 fL (80-100); Mean Platelet Volume 9.4 fL (9.1-12.4); NEUTROPHILS ABSOLUTE AUTO 6.91 K/mm3 (1.96-9.15); NEUTROPHILS PERCENT AUTO 68 % (41-73); Platelet Count 298 K/mm3 (150-400); RDW Coefficient Variation 12.7 % (11.7-14.2); RDW Standard Deviation 44.9 fL (35.1-46.3); Red Blood Cell Count 4.53 M/mm3 (4.30-5.90); White Blood Cell Count 10.11 K/mm3 (4.00-11.30)
[2019-10-26 00:32] LABS: Bilirubin, Urine Neg (Neg); Blood, Urine 1+ (Neg); Glucose Qualitative, Urine Neg (Neg); Ketones, Urine Neg (Neg); Leukocyte Esterase, Urine 1+ (Neg); Nitrite, Urine Neg (Neg); Protein, Urine 1+ (Neg); Urobilinogen, Urine 1+ (Normal)
[2019-10-26 00:33] LABS: Appearance, Urine Hazy (Clear); Color, Urine Yellow (P-Yellow)
[2019-10-26 00:37] LABS: Red Blood Cells, Urine 0-2 /hpf (0-2); White Blood Cells, Urine 0-2 /hpf (0-5)
[2019-10-26 00:38] LABS: Amorphous Heavy (0-Heavy); Bacteria Few /hpf; Spermatozoa Few /hpf; Squamous Epithelial Cells Few /hpf (Few)
[2019-10-26 00:47] LABS: U Amphetamine Screen DETECTED; U Barbituate Screen Not Detected; U Benzodiazapine Screen Not Detected; U Buprenorphine Screen Not Detected; U Cannabinoids Screen DETECTED; U Cocaine Screen Not Detected; U Methadone Screen Not Detected; U Methamphetamine Screen DETECTED; U Opiates Screen Not Detected; U Oxycodone Screen Not Detected; U Phencyclidine Screen Not Detected; U Propoxyphene Screen Not Detected
[2019-10-26 00:49] LABS: Alanine Aminotransfer (ALT/SGP 28 U/L (12-78); Albumin, Blood 3.6 g/dL (3.4-5.0); Albumin/Globulin Ratio 0.9 (0.8-1.8); Alk Phos 93 U/L (50-136); Anion Gap 6 mmol/L (6-16); Aspartate Aminotrans (AST/SGOT 25 U/L (12-37); Bilirubin, Total 0.3 mg/dL (0.1-1.0); Blood Urea Nitrogen 20 mg/dL (8-24); Bun/Creatinine Ratio 27.9 (12.0-20.0); CO2, Blood 26 mmol/L (21-32); Calcium, Blood 8.7 mg/dL (8.5-10.1); Chloride, Blood 108 mmol/L (98-108); Creatinine, Blood 0.72 mg/dL (0.60-1.20); Ethanol (Alcohol), Blood, Med <3 mg/dL; Glomerular Filtration Rate >60 (60-); Glucose, Blood 115 mg/dL (70-99); Potassium, Blood 4.2 mmol/L (3.5-5.5); Salicylate 2.2 mg/dL (2.8-20.0); Sodium, Blood 140 mmol/L (136-145); Total Protein, Blood 7.6 g/dL (6.4-8.2)
[2019-10-26 00:50] LABS: Acetaminophen, Random <2.0 ug/mL (10.0-30.0)
--- NOTE | 2019-10-26 04:11 | NUR ---
PT TO ICU 4 @0130 FROM ED. PT ARRIVES INTUBATED AND SEDATED. VENT SETTINGS AC 14/450/5/30% WITH SATS OF 100%. PROPOFOL @ 60 MCG/LG/MIN. PER ED NURSE PT COMBATIVE AND AGITATED WHEN NOT ADEQUATELY SEDATED. ATIVAN PRN ORDERED ADJUNCT TO SEDATION. BILATERAL SOFT WRIST RESTRAINTS IN PLACE TO PREVENT ACCIDENTAL SELF-EXTUBATION. PT BROUGHT IN TO ED COOK SHORT ORDER HOLD. PT ADMITTED "Q7 MCKENNA". PT'S POSSESSION SEARCHED, CITATION FROM POLICE DEPARTMENT SHOWS PT'S NAME "MEIR TERRAZAS" 1990. 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 PT ADMITTED HIGH SUICIDE SEVERITY, UNABLE TO ASSESS AT THIS TIME D/T PT BEING INTUBATED AND SEDATED. REASSESS UPON EXTUBATION. PT'S VSS. SKIN C/DI, RASH LOCATED ON LEFT HIP-ORDER FOR ANTIFUNGAL CREAM BID. LEFT MIDDLE FINGER PARTIAL AMPUTATION. TEMP ZENDEJAS PATENT AND DRAINING CLOUDY YELLOW URINE. SEE FULL ADMISSION ASSESSMENT
--- NOTE | 2019-10-26 06:08 | NUR ---
SHIFT SUMMARY NO CHANGES SINCE ADMISSION. ATTEMPT TO DECREASE PROPOFOL FROM 60 MCG/KG/MIN RESULTED IN PT BECOMING EXTREMELY AGITATED, THRASHING HEAD, KICKING LEGS AND ATTEMPTING TO GRAB ETT. VITAL SIGNS REMAIN STABLE. WILL REPORT TO DAYSHIFT NURSE.
--- NOTE | 2019-10-26 07:15 | NUR ---
BEGINNING OF SHIFT Assumed care of pt at 0715 from Donavon NGUYEN. Pt sedated with 60 mcg/kg/min propofol. Responsive to painful stimulus. Pt intubated and ventilated, settings AC 14/450/5/30%. SpO2 90% or greater. Lungs clear. No sputum aspirated from in-line suction. SR per monitor. BP stable. OG tube to LIS with food-like contents draining into suction canister. Penaloza catheter in place.
--- NOTE | 2019-10-26 08:55 | NUR ---
DR PRATHER IN TO SEE PT Discussed plan of care. No new orders at this time.
--- NOTE | 2019-10-26 10:11 | NUR ---
UPDATE Dr Vidal in to see pt. States plan to increase frequency for ativan. States plan to obtain sputum culture. No plans to wean today. At this time, propofol 40 mcg/kg/min. Pt responsive to painful stimulus. Has moments of agitation where he slides down in bed and pulls on restraints. Discussed sedation and pt's response with Dr Vidal.
--- NOTE | 2019-10-26 10:30 | NUR ---
PRECEDEX ORDERS Clarified with Dr Vidal. Precedex to be used for pt's SBT. Not to be used otherwise.
--- NOTE | 2019-10-26 10:30 | NUR ---
CARE HANDOFF TO NATHAN NGUYEN Propofol 40 mcg/kg/min. AC 14/450/5/30%
--- NOTE | 2019-10-26 11:15 | NUR ---
CARE ASSUMED OF PT FROM NATHAN NGUYEN
--- NOTE | 2019-10-26 12:19 | NUR ---
ATTEMPTED SEDATION VACATION Propofol decreased to 40 mcg/kg/min and remained there for several hours. At 1130, this RN in room for oral care. Pt became acutely agitated, sitting up in bed, pulling on restraints and coughing. Pt did not open eyes. Pt not receptive to verbal redirection. Pt did not follow any commands. Dr Vidal in room, states to increase propofol.
--- NOTE | 2019-10-26 18:20 | NUR ---
SUMMARY Pt remains on 60 mcg/kg/min propofol. Requiring IV push ativan to manage agitation. Without it, pt will strongly pull against restraints and reach for ETT with minimal stimulus applied. Vent settings AC 14/450/5/25%. Sputum sample sent. Will continue to closely monitor until care handoff and bedside report with oncoming RN.
--- NOTE | 2019-10-26 20:14 | NUR ---
ASSUMED CARE OF PT AT 1915. PT PRESENTS IN BED. VENTED- AC 14, Tv 450, FIO2 25% PEEP 5. PT CURRENTLY ON PROPOFOL AT 60 MCG/KG/MIN. MAINTAINS SAS 3-4. SOFT BI LATERAL RESTRAINTS TO WRISTS. WILL REVIEW CHART AND PLAN OF CARE FOR THIS PT.
--- NOTE | 2019-10-26 23:00 | NUR ---
FULL BEDBATH DONE FOR THIS PT. PT MOSTLY PASSIVE THROUGHOUT BATH. HAVE ETT SUCTIONED PT SEVERAL TIMES WITH RETURN OF WHITISH COLORED SECRETIONS. WILL CONTINUE TO MONITOR PT.
[2019-10-27 03:54] LABS: BASOPHILS ABSOLUTE AUTO 0.04 K/mm3 (0.00-0.23); BASOPHILS PERCENT AUTO 1 % (0-2); EOSINOPHILS ABSOLUTE AUTO 0.27 K/mm3 (0.00-0.68); EOSINOPHILS PERCENT AUTO 3 % (0-6); Hematocrit 39.7 % (37.0-53.0); Hemoglobin 12.3 g/dL (13.5-17.5); IMMATURE GRAN ABSOLUTE AUTO 0.02 K/mm3 (0.00-0.10); IMMATURE GRAN PERCENT AUTO 0 % (0-1); LYMPHOCYTES ABSOLUTE AUTO 2.11 K/mm3 (0.84-5.20); LYMPHOCYTES PERCENT AUTO 24 % (21-46); MONOCYTES ABSOLUTE AUTO 0.81 K/mm3 (0.16-1.47); MONOCYTES PERCENT AUTO 9 % (4-13); Mean Corpuscular HGB 30.3 pg (26.0-34.0); Mean Platelet Volume 9.3 fL (9.1-12.4); NEUTROPHILS ABSOLUTE AUTO 5.42 K/mm3 (1.96-9.15); NEUTROPHILS PERCENT AUTO 63 % (41-73); Platelet Count 221 K/mm3 (150-400); RDW Coefficient Variation 13.2 % (11.7-14.2); RDW Standard Deviation 47.8 fL (35.1-46.3); Red Blood Cell Count 4.06 M/mm3 (4.30-5.90); White Blood Cell Count 8.67 K/mm3 (4.00-11.30)
[2019-10-27 03:56] LABS: Mean Corpuscular Volume 98 fL (80-100)
[2019-10-27 04:13] LABS: Alanine Aminotransfer (ALT/SGP 22 U/L (12-78); Albumin, Blood 2.5 g/dL (3.4-5.0); Alk Phos 66 U/L (50-136); Anion Gap 1 mmol/L (6-16); Aspartate Aminotrans (AST/SGOT 34 U/L (12-37); Bilirubin, Total 0.3 mg/dL (0.1-1.0); Blood Urea Nitrogen 10 mg/dL (8-24); Bun/Creatinine Ratio 13.2 (12.0-20.0); CO2, Blood 30 mmol/L (21-32); Calcium, Blood 7.6 mg/dL (8.5-10.1); Chloride, Blood 112 mmol/L (98-108); Creatinine, Blood 0.76 mg/dL (0.60-1.20); Glomerular Filtration Rate >60 (60-); Glucose, Blood 81 mg/dL (70-99); Magnesium, Blood 2.2 mg/dL (1.6-2.4); Phosphorus, Blood 3.8 mg/dL (2.5-4.9); Potassium, Blood 3.9 mmol/L (3.5-5.5); Sodium, Blood 143 mmol/L (136-145)
[2019-10-27 04:38] LABS: Albumin/Globulin Ratio 0.8 (0.8-1.8); Globulin, Blood 3.1 g/dL (2.2-4.0); Total Protein, Blood 5.6 g/dL (6.4-8.2)
--- NOTE | 2019-10-27 05:20 | NUR ---
BEGINNING PROCESS OF WEAN TRIAL. HAVE PLACED PT ON PRECEDEX AT 0.5 MCG/KG/HR. HAVE STOPPED PROPOFOL. PT HAS MADE SOME MOVEMENT IN BED. WILL AWAIT RESPIRATROY THERAPY TO MAKE CHANGES FOR WEAN TRIAL. PT HAS REMAINED WITH VSS. WHITISH COLORED SECRETIONS WITH ETT SUCTIONING. URINE OUTPUT QS. WILL CONTINUE TO MONITOR PT, AND WILL REPORT OFF TO ONCOMING RN. IF PT IS NOT SUCCESSFUL WITH WEAN TRIAL WILL PLACE PT BACK TO AC AND RESTART PROPOFOL AND PLACE PRECEDEX ON STANDBY.
--- NOTE | 2019-10-27 07:28 | NUR ---
BEGINNING OF SHIFT Assumed care at 0700. Bedside report received from Tobin NGUYEN. Pt sedated with propofol 60 mcg/kg/min. Responsive to painful stimulus. Cough and gag present. 8.[address], 25 cm ATT. Vent settings AC 14/450/5/25%. SpO2 90% or greater. Lungs clear t/o on auscultation. Scant amount of white sputum. SR per monitor. BP stable.
--- NOTE | 2019-10-27 11:56 | NUR ---
PLANS FOR EXTUBATION Per Dr Vidal, plan to extubate pt today. At this time, propofol is off. Pt on precedex at 0.7 mcg/kg/hr. Pt on PS 10/5, 25%. Spontaneous respirations are 14-20 per minute with tidal volumes consistently 400-500 mL. SpO2 99%. Pt arouses with verbal stimulus. Follows commands. Verbally redirectable when agitated.
--- NOTE | 2019-10-27 12:06 | NUR ---
DR WESLEY IN TO SEE PATIENT States pt may be extubated.
--- NOTE | 2019-10-27 12:21 | NUR ---
EXTUBATION Pt extubated at 1214 with this RN and Niko RT at bedside. Restraints removed at extubation. Pt placed on 3 LPM NC, but has since been titrated to room air. SpO2 96%. Pt has productive cough with moderate amounts of clear sputum. Pt remains on 0.7 mcg/kg/hr precedex. Plan to titrate precedex down. Pt oriented to hospital room and staff. This RN asked pt his name. Pt did not provide answer. This RN asks pt if he knows how he got here, he mouths "two lethal shots". This RN notified pt that he was not shot, and just tazed by police. Pt uses profanities to state disbelief. Pt additionally mouths "Can I eat". Pt educated that he cannot eat at this time but clear liquids can be trialed in a few hours. Pt in moderate risk suicide precautions as he was threatening to kill himself and others prior to presentation to ED. Pt being monitored by camera at this time. Room mitigation complete.
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
--- NOTE | 2019-10-27 15:07 | NUR ---
UPDATE Pt awake, talking to staff. Voice raspy and difficult to understand. Cough, swallow, and gag intact. Bedside swallow eval passed. Pt eating pudding at this time. Pt fixated on knee, repeatedly asking "what the f did they do to my knee", pointing at site of previous IO, that is no longer present. Pt educated on IO. Pt continues to rant about site, using profuse profanities.
--- NOTE | 2019-10-27 15:18 | NUR ---
PT CONTINUES TO REFUSE TO PARTICIPATE IN [place] SUICIDE ASSESSMENT.
--- NOTE | 2019-10-27 15:52 | NUR ---
FEVER DISCUSSED WITH DR WESLEY Pt febrile per tempratima remy. Tylenol given. Pt started on Unasyn today. Discussed that head CT showed sinusitis. Pt has not had any sinus complaints. Pt resistant to taking medication from this RN. Decision made by provider to not start nasal sprays at this time.
--- NOTE | 2019-10-27 16:03 | NUR ---
DR WILKINS IN TO SEE PT Pt not participating with Dr Wilkins. Provider states he will be in to see pt tomorrow. Provider states for pt to remain in high risk suicide precautions. Provider also placed pt on 2 MD hold.
--- NOTE | 2019-10-27 17:17 | NUR ---
UPDATE Pt to transfer to medical floor. Telephone report given to Ying NGUYEN. Will notify that admission interventions are not complete as pt is not answering questions for this RN at this time. Chart, medications, and belongings to be transferred with patient.
--- NOTE | 2019-10-27 17:19 | NUR ---
SUMMARY At this time pt is responsive to verbal stimulus. Pt answers "Merril" when asked what his name is. Pt is not providing his name or date of for this RN. Pt continues to not answer [place] suicide severity assessment. Pt agrumentative when asked to follow simple commands. Pt has not received any medications for agitation since extubation. Pt on room air. Expectorating large amounts of clear/brown sputum. Pt now medical floor status without telemetry. VSS. Temp 99.9.
--- NOTE | 2019-10-27 18:04 | NUR ---
SHIFT SUMMARY: ASSUMED CARE OF PATIENT UPON HIS TRANSFER FROM ICU AT 1730. HE IS AWAKE, SLIGHTLY LETHARGIC, VERY UNSTEADY ON HIS FEET. SPEECH IS NONSENSICAL AND DELUSIONAL, IS THREATENING LAWSUIT D/T HIS KNEE PAIN WHICH HE IS UNABLE TO QUANTIFY USING PAIN SCALE. GAVE ICE PACK TO SEE IF THAT OFFERS RELIEF. WILL NOT ANSWER QUESTIONS. HAS 1:1 SITTER PRESENT. ATE DINNER WITHOUT DIFFICULTY. PLAN IS PSYCH CONSULT, HAS INVOLUNTARY HOLD.
--- NOTE | 2019-10-27 21:08 | NUR ---
2006 PT REFUSED TO TAKE AUGMENTIN AND LOTREMIN CREAM; PT ASKED TO BE ADDRESSED "Q-7" DURING INTERACTIONS WITH THIS NURSE; PT POLITE, ATE BEEF SANDWICH; PT CURRENTLY HAS SITTER AT SIDE "CHENTE" AND ON CAMERA. 2100M PT RESTING COMFORTABLY IN BED.
--- NOTE | 2019-10-28 04:57 | NUR ---
SHIFT SUMMARY: MALE PATIENT RESTED COMFORTABLY ALL SHIFT; PT WOULD NOT PROVIDE HIS PERSONAL NAME AND REQUESTED TO BE CALLED "Q-7"; DENIES PAIN OR NAUSEA; PT REFUSED TO TAKE H.S. MEDS; PT IS EATING AND DRINKING FLUIDS; PT CONTINUES TO HAVE FLAT WITHDRAWN AFFECT; PT HAD 1:1 SITTER AT SIDE ALL NIGHT WITH REMOTE CAMERA OBSERVATION NOTED; DENIES PAIN OR NAUSEA; BED ALARM APPLIED, BED LOW POSITION WITH CALL LIGHT AT SIDE.
--- NOTE | 2019-10-28 08:45 | NUR ---
PT SOME FLAT EFFECT. MOSTLY PLEASANT. A/O SO SELF, , NAME, STATES IS LAWRENCE TERRAZAS. [birth year] AGE 29. H/R REG, NO MURMER NOTED. NO TELE. LUNGS CLEAR, EXCEPT LIGHT DIM LEFT BASE. ON R.A. RESP EASY, UNLABORED. BT X4 LAST BM 1-2 DAYS PER PT. HE NOT SURE. VOIDS TO URINAL. SCAR L KNEE, L MID FINGER AMPUTATED 2ND JOINT. BED IN LOW POSITION,C ALL LITE IN REACH, SITTER AT DOORWAY. CAMERA ON.
--- NOTE | 2019-10-28 18:43 | NUR ---
PT MOSTLY PLEASANT TODAY. SOME IRRITATION NOTED THIS AFT THEN WAS ABLE TO CALM SELF BACK. SITTER HERE FULL DAY. NO OTHER CONCERNS AT THIS TIME. BED IN LOW POSITION, CALL LITE ON WALL.
--- NOTE | 2019-10-28 20:22 | NUR ---
1929 REPORT RECEIVED FROM WENDY MORRISON; FOLLOWING SIMPLE VERBAL COMMANDS; PT TENDS TO NOT LOOK NURSING STAFF IN EYE WHEN ADDRESSED; PT OFFICIAL NAME IS "MERSUZIE BALL" PER PATIENT AND HE RESPONDS TO THIS NAME; REBEKA BRISENO CNA AT SIDE FOR 1:1 SITTER AT THIS TIME: PT IS ON REMOTE CAMERA OBSERVATION.
--- NOTE | 2019-10-29 04:05 | NUR ---
SHIFT SUMMARY: 29 Y/O MALE RESTED COMFORTABLY ALL SHIFT; PT HAD MINIMAL INTERACTION WITH NURSING STAFF; PT CONTINUES TO BE ON TWO MD HOLD WITH REMOTE CAMERA OBSERVATION AND 1:1 SITTER IN ROOM; ALERT AND ORIENTED X 3; ABLE TO FOLLOW ALL SIMPLE VERBAL COMMANDS; BED LOW POSITION WITH CALL LIGHT AT SIDE.
--- NOTE | 2019-10-29 07:08 | NUR ---
PATIENT WAS OFFERED A SHOWER THIS MORNING ANDHE DECLINED. HE STATED HE MAY TAKE ONE AFTER BREAKFAST OR LATER TODAY. I WILL OFFER AGAIN AFTER PATIENT EATS BREAKFASTS.
--- NOTE | 2019-10-29 07:26 | NUR ---
Remote monitoring This RN verified remote monitoring is on and patient is visible.
--- NOTE | 2019-10-29 07:27 | NUR ---
1:1 sitter GÓMEZ Oliavres in room for 1:1 sitter
--- NOTE | 2019-10-29 08:00 | NUR ---
PATIENT TOOK A SHOWER, LINNEN WAS CHANGED, AND CLEAN SI CLOTHES WERE PUT ON.
--- NOTE | 2019-10-29 10:53 | NUR ---
PATIENT IS TALKING ABOUT HOW WHNE HE GETS BACK "OUT THERE" HE WILL FIND HIM AND HE WILL SNAP HIS NECK. PATIENT KEEPS LOOKING OUT THE WINDOW AND THEN GETS ABCK IN THE WINDOW AND TALKING ABOUT HOW HE WILL HURT SOMEONE AND THEN KILL THE INTRUDERS. 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 HE HAS BEEN TALKING MORE VIOELNTLY LATELY THE MORNING GOES ON. RN MADE AWARE.
--- NOTE | 2019-10-29 11:11 | NUR ---
PATIENT UP GOING TROUGH ROOM AND RUMMING THROUGH STUFF COMMENTING ON HOW HE NEDS TO GET OUT OF HERE WHILE STILL CUSSING AND GOING ON ABOUR WHO HE NEEDS TO KILL AND WHY AND HOW ETC.
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
--- NOTE | 2019-10-29 11:35 | NUR ---
PATIENT IS PUNCHING THE BED CONTOUNSLY AND IS VERY AGGITATED AT THE STAFF FROM WHEN HE WAS FIRST ADMITTED IN ER AND IS VENTING ABOUT IT AND IS MAD ABOUT PROCEDURES THAT WAS DONE THAT HE SAYS WAS NOT NECCESSARY. PATIENT IS THREATNING TO BLOW THE HOSPITAL UP AND IS SPITTING IN THE ROOM.
--- NOTE | 2019-10-29 11:53 | NUR ---
Patient up in hallway and tearful RE experience in ED stating he is hurting internally (emotionally). Also appears to have some sort of hallucination going on as patient answered "Yes, I probably deserve that." Patient is back in room and cooperative with taking meds. Zyprexa given via mucosa and tylenol for pain.
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
--- NOTE | 2019-10-29 14:41 | NUR ---
NO IV ACCESS Patient does not have an IV nor any IV meds. Received order for NO IV ACCESS from Dr. Brennan.
--- NOTE | 2019-10-29 17:30 | NUR ---
Shift Summary A/Ox3, acute psychosis noted, labile mood. One episode of agitation directed toward the bed. Had moments of tearfulness, anger, and emotional distress. Medicated x 1 for agitation. Patient was cooperative with care. Able to make needs known. 1:1 sitter at bedside this shift. Appetite is great, pleasant to talk to at times. Will continue to monitor.
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
--- NOTE | 2019-10-30 11:08 | NUR ---
BOWEL MOVEMNET 10/29/19 Patient stated he had a bowel movement on 10/29/19 when he was asked when the last time he went was. no discription was given so just a movement was charted for output. RN notofied.
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
--- NOTE | 2019-10-30 17:24 | NUR ---
STUDENT ASSESSMENT I WAS PRESENT DURING THE STUDENTS AM SHIFT ASSESSMENT AND AGREE WITH THAT ASSESMENT AND THE DOCUMENTAION OF THAT ASSESSMENT
--- NOTE | 2019-10-30 17:35 | NUR ---
DOUBLE PROPORTION ON 10/30/19 I ORDERED DOUBLE PORPORTIONS ON ALL MEAL TRAYS LONG HE IS A PATIENT THIS STAY DUE TO US ORDERING SECOND TRAYS AND EXTRA SNACKS ETC AT HIS REQUEST. RN NOTIFIED.
--- NOTE | 2019-10-30 17:39 | NUR ---
SHIFT SUMMARY PT HAS BEEN RESTING IN BED SINCE AFTER BREAKFAST AND MORNING MEDS/ASSESSMENT. PT HAS BEEN CALM AND PLEASANT ALL DAY WITH NO COMPLAINTS OF PAIN OR SOB. PT TOILETS AND AMBULATES INDEPENDENTLY. PT IS STILL ON 2MD HOLD. HE EATS LARGE AMOUNTS AT EACH MEAL TIME. ORDERS HAVE BEEN PLACED TO INCREASE FOOD PROVIDED AT MEAL TIMES. HE IS ALERT AND ORIENTED X4.
--- NOTE | 2019-10-31 05:34 | NUR ---
SHIFT SUMMARY: VSS. AFEB. AAOX3. PT STATES HE IS NOT HAVING SUICIDAL IDEATION TONIGHT BUT CONT TO STRUGGLE W/OCCASIONAL HOMICIDAL IDEATION. HAS NOT MADE ANY VERBAL OR PHYSICAL THREATS TO STAFF TONIGHT. MOOD IS CALM AND CONVERSATIONAL. PT ASKING QUESTIONS ABOUT MEDICAL INTERVENTIONS DURING HIS STAY. REQUESTED AND ATE SNACK AT HS. HAS SLEPT MOST OF THE NIGHT. NO ACUTE CHANGES OVERNIGHT. CONT W/CAMERA AND 1:1 STAFF.
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
--- NOTE | 2019-10-31 18:39 | NUR ---
PATIENT IS ALERT AND ORIENTED AND COOPERATIVE WITH CARE. HE HAS BEEN TALKATIVE WITH STAFF AND HIS 1:1 SITTER. HE HAS WATCHED TV MOST OF THE DAY. PATIENT IS COOOPERATIVE WITH CARE. NO COMPLAINTS OF PAIN. HE IS A SBA TO THE BATHROOM. DR. WILKINS SAW THE PATIENT TODAY AND MADE SOME CHANGES TO HIS MEDICATIONS. WILL CONTINUE TO MONITOR
--- NOTE | 2019-10-31 19:10 | NUR ---
ASSUMED CARE RECEIVED REPORT FROM WENDY MONTEMAYOR. ASSUMED CARE OF PT. SITTING IN BED WATCHING TV, SITTER AT THE BEDSIDE. PT CALM AND COOPERATIVE. DENIES NEEDS AT THIS TIME. ENVIRONMENT FREE FROM HARMFUL OBJECTS. CALL LIGHT, POSSESSIONS IN REACH, WILL CONTINUE TO MONITOR.
--- NOTE | 2019-10-31 19:10 | NUR ---
ASSUMED CARE PT RESTING COMFORTABLY AT THIS TIME, NO S/S ACUTE DISTRESS NOTED. PT PLEASANT AND COOPERATIVE FOR MOST OF THE SHIFT, HAD A PERIOD OF INCREASED AGITATION, MEDICATED PER EMAR, SEE NURSE'S NOTE. PT CALM AFTERWARDS, CONVERSING WITH SITTER AND DOZING OFF OCCASIONALLY. VS STABLE T/O NIGHT, NO ACUTE CHANGES NOTED. DENIES NEEDS AT THIS TIME. CALL LIGHT, POSSESSIONS IN REACH. WILL CONTINUE TO MONITOR UNTIL DAY RN ASSUMES CARE.
--- NOTE | 2019-10-31 20:00 | NUR ---
10/31/191999-LATE ENTRY PT WATCHING TV IN ROOM, SITTER AT THE BEDSIDE. PT CALM, DENIES THOUGHTS OF SELF-HARM AT THIS TIME. ENVIRONMENT FREE FROM HARMFUL OBJECTS. PT CONTRACTED FOR SAFETY. DENIES NEEDS AT THIS TIME. WILL CONTINUE TO MONITOR.
--- NOTE | 2019-11-01 00:03 | NUR ---
0003 THIS RN IN PT ROOM RELIEVING SITTER. PT UP TO BATHROOM, CALM AND COOPERATIVE, DENIES THOUGHTS OF SELF HARM. PT SPEAKING TO INDIVIDUALS NOT IN ROOM USING COLORFUL LANGUAGE, REPORTS HEARING VOICES, STATES THAT "THE VOICES" EACH HAVE NAMES. CONTINUING TO CONVERSE NON-SENSICALLY WITH THE VOICES. NO SIGNS OF DANGER TO SELF OR OTHER NOTED AT THIS TIME. WILL CONTINUE TO MONITOR.
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
--- NOTE | 2019-11-01 05:02 | NUR ---
SHIFT SUMMARY PT ASLEEP AT THIS TIME, NO S/S ACUTE DISTRESS NOTED. WAS MONITORED EVERY 1-2 HOURS WITH NEEDS MET. CALM AND COOPERATIVE FOR MUCH OF THE SHIFT, HAD A PERIOD OF INCREASED AGITATION, MEDICATED PER EMAR, SEE NURSE'S NOTE. PT INCREASINGLY CALM FOLLOWING PRN MEDICATION, CONVERSING WITH SITTER AND DOZING OFF OCCASIONALLY. DENIES NEEDS AT THIS TIME, ENVIRONMENT FREE FROM HARMFUL OBJECTS. CALL LIGHT, POSSESSIONS IN REACH. WILL CONTINUE TO MONITOR UNTIL DAY RN ASSUMES CARE.
--- NOTE | 2019-11-01 09:45 | NUR ---
ATTEMPTED TO DO MORNING ASSESSMENT, PT REFUSED. DOC WAS PRESENT AND LISTENED TO LUNG SOUNDS. CLEAR SOUNDS PER DOC. PT REFUSED TO ANSWER ANY QUESTIONS . PT HAS SITTER PRESENT AND IS ON CAMERA
--- NOTE | 2019-11-01 11:19 | NUR ---
Notes reviewed --patient remains psychotic and uncoorperative, Provider DC plan is transfer to inpatient psychiatric treatment. Suicide safety plan to be re-attempted if DC plan changes.
--- NOTE | 2019-11-01 16:27 | NUR ---
PT BECAME AGITATED WHILE DISCUSSING DIVERSION TREATMENT WITH COIN MACHINE OPERATOR AND NURSE. THE DIVERSION TREATMENT WAS EXPLAINED SIMPLY POSSIBLE. PT BECAME BELLIGERENT STATING HE WOULD GO AFTER AND ATTACK THE [facility] SO HE COULD EARN HIS 6 MONTHS. COIN MACHINE OPERATOR AND NURSE EXPLAINED THAT BY DOING THE 2 WEEK PROGRAM HE WOULD NOT HAVE TO BE COMMITTED FOR 6 MONTHS. PT STATED HE WOULD JUST COME BACK TO [place] AND "TEACH THESE PEOPLE A LESSON" . PT CONTINUED WITH GRANDIOSE IDEAS OF HARMING OTHERS. PT HAD SITTER RETURN TO ROOM .
--- NOTE | 2019-11-01 17:45 | NUR ---
NO ACUTE CHANGES. SEE PREVIOUS NOTES
--- NOTE | 2019-11-01 19:20 | NUR ---
ASSUMED CARE PT ASLEEP AT THIS TIME, NO S/S ACUTE DISTRESS NOTED. VERIFIED REMOTE MONITORING. SITTER AT BEDSIDE. CALL LIGHT IN REACH, ENVIRONMENT FREE FROM HARMFUL OBJECTS. WILL CONTINUE TO MONITOR.
--- NOTE | 2019-11-01 21:20 | NUR ---
RN AND PT COMMUNICATION THIS RN AT BEDSIDE ASSESSING PT AND ADMINISTERING MEDICATIONS, PT CALM AND COOPERATIVE BUT VOICING FRUSTRATIONS R/T DIVERSION THERAPY, CLAIMING THAT THEY WANT TO KEEP HIM FOR 6 MONTHS. THIS RN USING THERAPEUTIC COMMUNICATION, EXPLAINING TO PT THE PLAN FOR DIVERSION THERAPY. PT DENYING THOUGHTS OF SELF-HARM, BUT VISIBLY UPSET, STATING, USING COLORFUL LANGUAGE, THAT HE WANTS TO KILL THE WHOLESALE LOAN PROCESSOR FOR SENDING HIM TO THE [facility], AND THAT NO ONE CARES ABOUT HIM. REASSURED PT THAT STAFF IS HERE FOR HIM AND CARE ABOUT HIM.
--- NOTE | 2019-11-02 03:33 | NUR ---
SHIFT SUMMARY PT ASLEEP AT THIS TIME, SITTER AT THE BEDSIDE. SLEPT T/O NIGHT, NO ACUTE EVENTS NOTED, OTHER THAN CONVERSATION AT BEGINNING OF SHIFT. NO S/S ACUTE DISTRESS NOTED. WAS MONITORED EVERY 1-2 HOURS WITH NEEDS MET. DENIES NEEDS AT THIS TIME. CALL LIGHT, POSSESSIONS IN REACH. ENVIRONMENT FREE FROM HARMFUL OBJECTS. WILL CONTINUE TO MONITOR.
--- NOTE | 2019-11-02 13:57 | NUR ---
No Suicide Safety Plan completed. Current plan from psychiatrist is to transfer to inpatient psychiatric treatment due to "dangerous to self and others". Disussed case with assigned RN, Charge Nurse and Clinical Coordinator and requested to contact this telegraphic typewriter repairer if DC plan changes and another attempt will be made to complete Plan. Reviewed patient clinical notes, and [address] in paper chart dated October 31. Informed that Care Management is seeking an inpatient facility to accept patient.Pt remains on 1:1 at bedside. Cheri Moore M.Ed., HP-C, Behavior Health Director
--- NOTE | 2019-11-02 17:46 | NUR ---
NO ACUTE CHANGES.
--- NOTE | 2019-11-02 20:29 | NUR ---
ROOM ASSESSED FOR SAFETY. PT ON BED, TALKATIVE - NOTED SOME RUN-ON FLIGHT OF IDEAS. AFFECT CHEERFUL. 1:1 AT BEDSIDE FOR SAFETY. OBS CAMERA IN USE. TOLERATED MEDS WELL. CALL LIGHT IN REACH. WILL CONTINUE TO MONITOR.
--- NOTE | 2019-11-03 03:45 | NUR ---
SHIFT SUMMARY REMAINS ON MEDICAL HOLD FOR POTENTIAL DANGER TO SELF AND OTHERS UNTIL PLACEMENT FOUND IN [facility]. 1:1 AT BEDSIDE FOR SAFETY. CURRENTLY RESTING QUIETLY, SAFETY CHECKS ON ROOM MAINTAINED. NO NOTED SUICIDAL OR HOMICIDAL IDEATIONS VOICED OF THIS WRITING. CALL LIGHT IN REACH. WILL CONTINUE TO PROVIDE SAFE ENVIRONMENT.
--- NOTE | 2019-11-03 05:43 | NUR ---
1:1 CONTINUES, ALTHOUGH PT DENIES CURRENT THOUGHTS OF HURTING SELF, HE STILL APPEARS EDGY WHEN DISCUSSING THIS WITH NURSE.
--- NOTE | 2019-11-03 11:27 | NUR ---
MD VISIT DR CORTES AND THE [facility] HEALTH WORKER WERE HERE TO SEE THE PT, AFTER THEIR VISIT PT BECAME AGITATED AND WAS PUNCHING HIMSELF IN THE HEAD, PT SLOWLY DE-ESCALATED WITH VERBAL CUES AND REASSURANCE, PT REFUSING TO TAKE ANY MEDICATIONS AT THIS TIME, SITTER REMAINS ONE TO ONE AT THE BEDSIDE
--- NOTE | 2019-11-03 17:23 | NUR ---
SUMMARY PT RESTING QUIETLY IN BED, WAKES EASILY, REMAINED CALM FOR THE REST OF THE SHIFT AFTER BEING AGITATED AND UPSET AROUND LUNCHTIME, PT UP INDEPENDENTLY IN THE ROOM, PT DID VERBALIZE HI BUT NOT SI, ONE TO ONE SITTER REMAINS IN PLACE FOR SAFETY, PT ALSO ON CAMERA FOR SAFETY, WILL CONT TO MONITOR
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
--- NOTE | 2019-11-03 20:58 | NUR ---
PT REMAINS ON 1:1 FOR SAFETY FOR SUICIDAL/HOMICIDAL PRECAUTIONS. TALKATIVE. SMILING AND DENIED SAID IDEATIONS WHEN ASKED, BUT VOICED HE WAS "ANNOYED" WITH THE VISIT EARLIER IN THE DAY FROM THE PSYCH MD AND MENTAL HEALTH OFFICIAL. VOICED HE "PUNCHED (HIMSELF) IN THE HEAD" AFTER THE MEETING. BUT DENIED ANY SELF HARM INTENTIONS AT THIS TIME. WILL CONTINUE TO MONITOR
--- NOTE | 2019-11-04 05:48 | NUR ---
SHIFT SUMMARY HAS BEEN RESTING QUIETLY WITH FEW INTERRUPTIONS THIS SHIFT. 1:1 MAINTAINED FOR SAFETY. CALL LIGHT IN REACH.
--- NOTE | 2019-11-04 09:22 | NUR ---
ASSUMPTION OF CARE- PATIENT SLIGHTLY AGITATED, NO ACUTE CONCERNS AT THIS TIME. COVID R/O DONE ON NIGHTSHIFT AND SENT OUT FOR PATIENT ADMISSION TO INPATIENT CARE.
--- NOTE | 2019-11-04 17:47 | NUR ---
DOCTOR SOPHIA IN TO SEE THE PATIENT. HE NOTED THAT HE WOULD LIKE THE PATIENT TO BE OFF THE SITTER UNTIL THURSDAY TO SEE IF HE IS ABLE TO BE NO LONGER HOMICIDAL. THE GOAL IS STILL TO GET THE PATIENT TO INPATIENT PSYCH.
--- NOTE | 2019-11-04 17:53 | NUR ---
SHIFT SUMMARY PATIENT'S HIGH RISK SUICIDE WAS DISCONTINUED. HE IS LOW RISK AT THIS TIME AND HIS SITTER HAS BEEN DISCONTINUED. NO ACUTE CONCERNS AT THIS TIME, THE SITTER HAD NO CONCERNS WHEN SHE WAS DISCONITNUED.
--- NOTE | 2019-11-04 19:42 | NUR ---
NEW ORDER: SUICIDE PRECAUTION LEVEL/LOW PER DR WILKINS. NO SITTER AT THIS TIME.
--- NOTE | 2019-11-05 03:42 | NUR ---
SHIFT SUMMARY PATIENT HAD NO ACUTE CHANGES OBSERVED. AXOX 4 AND INDEPENDENT IN ROOM. ORDERS FOR SUICIDE PRECAUTIONS LEVEL/LOW PER DR CORTES. NO SITTER REQUIRED. DROPLET PRECAUTIONS FOR COVID-19 R/O. TAKES MEDICATION WHOLE WITH WATER. COOPERATIVE WITH CARE. CALL LIGHT IN REACH. BED IN LOWEST POSITION. WILL CONTINUE TO MONITOR UNTIL DAY SHIFT NURSE ASSUMES CARE.
--- NOTE | 2019-11-05 18:17 | NUR ---
SHIFT SUMMARY PATIENT IS PLEASANT TODAY. ALERT AND ORIENTED. HE IS INDEPENDENT IN THE ROOM AND STILL ON MONITORS ALTHOUGH HE IS ON LOW RISK SI.
--- NOTE | 2019-11-06 06:59 | NUR ---
11/06/19 0635 AWAKENED FOR AM VITALS. DENIES ANY S/S OR DISCOMFORT. PT SLEPT WELL THIS SHIFT. UNEVENTFUL NIGHT.
--- NOTE | 2019-11-06 11:45 | NUR ---
INPATIENT PSYCH UPDATE: [facility] CALLED REQUESTING UPDATED PROGRESS NOTE ON PATIENT. THIS RN FAXED BEHAVIORAL MEDICINE NOTE FROM DR. WILKINS DATED 11/05/2019 TO [phone].
--- NOTE | 2019-11-06 16:34 | NUR ---
SHIFT SUMMARY NO ACUTE CHANGES TO PRESENT THIS SHIFT. PT HAS REMAINED IN RM, RESTING QUIETLY IN BED WATCHING TV OR JUST WALKING AROUND THE BED. [facility] CALLED TODAY FOR UPDATED NOTE R/T PT STAY. [facility] RN ASSISTED WITH OBTAINING INFO AND FAXING NEEDED. PT HAS BEEN PLEASANT AND CO-OP. DENIED NEEDS ALL DAY. NO C/O. PER SHIFT REPORT, PT WANTED HOSPITALIST TO ASSESS FOR POSSIBLE KIDNEY ISSUES. DR DU IN TO SEE PT. ASSESSMENT DONE AND DISCUSSED WITH PT. NO FURTHER C/O. CALL LT IN REACH.
--- NOTE | 2019-11-07 06:54 | NUR ---
11/07/19 0550 SLEPT WELL. VITALS STABLE. UNEVENTFUL NIGHT
[2019-11-07] MEDS ORDERED: ZYPREXA15 MG PO (16:40)
--- NOTE | 2019-11-07 17:58 | NUR ---
SHIFT SUMMARY PT DISCHARGED. THIS RN EXPLAINED DISCHARGE INSTRUCTIONS AND MEDICATIONS TO PT AND HE REPORTS HE UNDERSTANDS. PT INDEPENDENT TO EXIT WITH THIS RN FOR RIDE TO [place] [facility]. PT'S BELONGINGS WITH PT. MEDICATIONS CALLED TO [facility] BY DR. CORTES.
--- NOTE | 2019-11-14 01:05 | NUR ---
LATE ENTRIES FOR HIGH RISK SUICIDAL CHECKLIST HIGH RISK SUICIDAL CHECKLISTS DOCUMENTED ON 11/14/19 ARE LATE ENTRIES FOR 10/30/19 0000 AND 10/30/19 0400.
== END 2019-11-07 17:38 | disposition home or self-care (01) | DRG 896 ==
LOC: ER 23:34 → ICUW 23:35 → EDBD 23:35 → ICUE 23:35 → EDBD 10-26 00:35 → MEDS 10-26 00:35 → ICUE 10-26 00:35 → MEDS 10-26 00:35 → ICUE 10-26 01:30 → MEDS 10-27 17:41
PROVIDERS: Emergency Medicine; Internal Medicine Critical Care Medicine; ADMIT Family Medicine
PROC: 5A1945Z Respiratory Ventilation, 24-96 Consecutive Hours (ICD-10-PCS; 2019-10-26)
PROC: 0BH17EZ Insertion of Endotracheal Airway into Trachea, Via Natural or Artificial Opening (ICD-10-PCS; 2019-10-26)
PROC: 8E0ZXY6 Isolation (ICD-10-PCS; principal; 2019-11-04)
DX: F15.159 Other stimulant abuse with stimulant-induced psychotic disorder, unspecified (principal); J96.00 Acute respiratory failure, unspecified whether with hypoxia or hypercapnia; J14 Pneumonia due to Hemophilus influenzae; R45.851 Suicidal ideations; J01.20 Acute ethmoidal sinusitis, unspecified; R45.850 Homicidal ideations; Z20.828 Contact with and (suspected) exposure to other viral communicable diseases; M54.5 Low back pain; F15.10 Other stimulant abuse, uncomplicated; B95.8 Unspecified staphylococcus as the cause of diseases classified elsewhere; F25.9 Schizoaffective disorder, unspecified; F12.10 Cannabis abuse, uncomplicated
CPT/HCPCS: 31500; 31720; 36415; 36680; 51702; 70450; 71045; 80053; 81001; 83735; 84100; 85025; 87040; 87070; 87077; 87086; 87147; 87185; 87186; 87205; 94002; 94003; 96372-59; 96374; 99285-25; A9270; A9270-GY; C9113; G0480; J0295; J0330; J1200; J1630; J1650; J2060; J2250; J2704; J3010; J7030; U0003

== ENCOUNTER 2020-09-05 09:39 | Emergency (ER) | payer OTHER ==
[~2020-09-05] VITALS: Ht 167.6 cm; Wt 61.2 kg
== END 2020-09-05 12:14 | disposition home or self-care (01) ==
LOC: ER 09:39
DX: K04.7 Periapical abscess without sinus (principal); F17.210 Nicotine dependence, cigarettes, uncomplicated; Z88.0 Allergy status to penicillin; Z88.1 Allergy status to other antibiotic agents
CPT/HCPCS: 99282; A9270; J1100

== ENCOUNTER 2021-08-20 14:44 | Emergency (ER) | payer OTHER ==
[~2021-08-20] VITALS: Ht 170.2 cm; Wt 64.9 kg
[~2021-08-20 14:44] MED LIST changes: +CLIN300 PO; +ZYPREXA15 MG PO
[2021-08-20] MEDS ORDERED: Bactrim Ds Tab1 EACH PO (16:19)
== END 2021-08-20 16:38 | disposition home or self-care (01) ==
LOC: ER 14:44
DX: S61.432A Puncture wound without foreign body of left hand, initial encounter (principal); W45.8XXA Other foreign body or object entering through skin, initial encounter; Z88.0 Allergy status to penicillin; Z88.8 Allergy status to other drugs, medicaments and biological substances; F17.210 Nicotine dependence, cigarettes, uncomplicated
CPT/HCPCS: 73130; 99283-25; A9270

== ENCOUNTER 2021-12-18 19:41 | Emergency (ER) | payer SELFPAY ==
[~2021-12-18] VITALS: Ht 167.6 cm; Wt 65.8 kg
[~2021-12-18 19:41] MED LIST changes: +Bactrim Ds Tab1 EACH PO
[2021-12-18] MEDS ORDERED: IBUP800 PO (22:59)
[2021-12-18] MEDS ORDERED: ONDA4ODT MM (22:59)
== END 2021-12-18 23:12 | disposition home or self-care (01) ==
LOC: ER 19:41
DX: S06.0X0A Concussion without loss of consciousness, initial encounter (principal); S02.2XXA Fracture of nasal bones, initial encounter for closed fracture; S41.012A Laceration without foreign body of left shoulder, initial encounter; S20.229A Contusion of unspecified back wall of thorax, initial encounter; F17.210 Nicotine dependence, cigarettes, uncomplicated; Y04.0XXA Assault by unarmed brawl or fight, initial encounter; Z88.1 Allergy status to other antibiotic agents; Z88.0 Allergy status to penicillin
CPT/HCPCS: 70450; 72125; 99283-25; A9270

== ENCOUNTER 2022-08-06 13:08 | Emergency (ER) | payer OTHER ==
[~2022-08-06] VITALS: Ht 167.6 cm; Wt 58.1 kg
[~2022-08-06 13:08] MED LIST changes: +IBUP800 PO; +ONDA4ODT MM
[2022-08-06] MEDS ORDERED: IBUP800 PO ×2 (13:19→13:24)
[2022-08-06] MEDS ORDERED: CLIN300 PO ×2 (13:19→13:24)
[2022-08-06] MEDS ORDERED: HYDR1TAB94 PO ×2 (13:19→13:24)
== END 2022-08-06 13:38 | disposition home or self-care (01) ==
LOC: ER 13:08
DX: K04.7 Periapical abscess without sinus (principal); Z88.0 Allergy status to penicillin; Z88.8 Allergy status to other drugs, medicaments and biological substances
CPT/HCPCS: 99282

== ENCOUNTER 2023-02-07 08:40 | Emergency (ER) | payer OTHER ==
[~2023-02-07] VITALS: Ht 170.2 cm; Wt 63.5 kg
[2023-02-07] MEDS ORDERED: CEPHALEXIN500 MG PO (09:42)
[2023-02-07] MEDS ORDERED: SULTRIDS PO (09:42)
[2023-02-07 10:08] VITALS: BP 140/93
== END 2023-02-07 10:09 | disposition home or self-care (01) ==
LOC: ER 08:40
DX: S60.011A Contusion of right thumb without damage to nail, initial encounter (principal); L03.90 Cellulitis, unspecified; Z88.0 Allergy status to penicillin; Z88.1 Allergy status to other antibiotic agents; X58.XXXA Exposure to other specified factors, initial encounter
CPT/HCPCS: 96372; 99282-25; A9270; J1885

== ENCOUNTER 2023-03-02 10:56 | Emergency (ER) | payer OTHER ==
[~2023-03-02] VITALS: Ht 170.2 cm; Wt 63.5 kg
[~2023-03-02 10:56] MED LIST changes: +CEPHALEXIN500 MG PO; +SULTRIDS PO
[2023-03-02 11:00] VITALS: BP 130/97
[2023-03-02] MEDS ORDERED: Clindamycin HC150 MG PO (13:06)
== END 2023-03-02 13:57 | disposition home or self-care (01) ==
LOC: ER 10:56
DX: L03.011 Cellulitis of right finger (principal); L02.413 Cutaneous abscess of right upper limb; L02.511 Cutaneous abscess of right hand; F17.210 Nicotine dependence, cigarettes, uncomplicated; Z88.0 Allergy status to penicillin; Z88.1 Allergy status to other antibiotic agents
CPT/HCPCS: 26010; 64450; 99283-25

== ENCOUNTER 2023-07-12 09:08 | Emergency (ER) | payer OTHER ==
[~2023-07-12] VITALS: Ht 167.6 cm; Wt 63.5 kg
[~2023-07-12 09:08] MED LIST changes: +Clindamycin HC150 MG PO
[2023-07-12 09:59] LABS: BASOPHILS ABSOLUTE AUTO 0.04 K/mm3 (0.00-0.23); BASOPHILS PERCENT AUTO 0 % (0-2); EOSINOPHILS ABSOLUTE AUTO 0.17 K/mm3 (0.00-0.68); EOSINOPHILS PERCENT AUTO 1 % (0-6); Hematocrit 46.8 % (37.0-53.0); Hemoglobin 14.9 g/dL (13.5-17.5); IMMATURE GRAN ABSOLUTE AUTO 0.06 K/mm3 (0.00-0.10); IMMATURE GRAN PERCENT AUTO 0 % (0-1); LYMPHOCYTES ABSOLUTE AUTO 1.84 K/mm3 (0.84-5.20); LYMPHOCYTES PERCENT AUTO 11 % (21-46); MONOCYTES ABSOLUTE AUTO 1.21 K/mm3 (0.16-1.47); MONOCYTES PERCENT AUTO 7 % (4-13); Mean Corpuscular HGB 30.9 pg (26.0-34.0); Mean Corpuscular HGB Conc 31.8 g/dL (31.5-36.5); Mean Corpuscular Volume 97 fL (80-100); NEUTROPHILS ABSOLUTE AUTO 13.26 K/mm3 (1.96-9.15); NEUTROPHILS PERCENT AUTO 80 % (41-73); Platelet Count 540 K/mm3 (150-400); RDW Coefficient Variation 12.3 % (11.7-14.2); RDW Standard Deviation 44.4 fL (35.1-46.3); Red Blood Cell Count 4.82 M/mm3 (4.30-5.90); White Blood Cell Count 16.58 K/mm3 (4.00-11.30)
[2023-07-12 10:21] LABS: Albumin, Blood 3.1 g/dL (3.4-5.0); Albumin/Globulin Ratio 0.6 (0.8-1.8); Bilirubin, Total 0.3 mg/dL (0.1-1.0); Bun/Creatinine Ratio 16.1 (12.0-20.0); Calcium, Blood 9.3 mg/dL (8.5-10.1); Creatinine, Blood 0.74 mg/dL (0.60-1.20); Globulin, Blood 5.4 g/dL (2.2-4.0); Potassium, Blood 4.2 mmol/L (3.5-5.5); Total Protein, Blood 8.5 g/dL (6.4-8.2)
[2023-07-12] MEDS ORDERED: Cephalexin Monohydrate 500 MG Cap PO ONE (14:00)
[2023-07-12] MEDS ORDERED: HYDROcodone 5-APAP 325 TAB PO ONE (14:00)
[2023-07-12] MEDS ORDERED: CEPH500 PO (14:26)
[2023-07-12] MEDS ORDERED: IBUP800 PO (14:26)
[2023-07-12 14:45] VITALS: BP 102/78
== END 2023-07-12 14:44 | disposition home or self-care (01) ==
LOC: ER 09:08
PROVIDERS: Student in an Organized Health Care Education/Training Program
DX: L02.413 Cutaneous abscess of right upper limb (principal); H60.92 Unspecified otitis externa, left ear; F17.210 Nicotine dependence, cigarettes, uncomplicated; Z88.0 Allergy status to penicillin
CPT/HCPCS: 10060; 80053; 85025; 99283-25; A9270